=== PATIENT | female | born 1945 | race African-American/Black ===

== ENCOUNTER 2016-08-12 22:15 | Emergency (ER) | payer MEDICARE, BC ==
--- NOTE | 2016-08-12 23:43 | RAD ---
PORTABLE UPRIGHT FRONTAL CHEST RADIOGRAPH 08/12/16 COMPARISON: 08/07/10 HISTORY: Syncope. FINDINGS: Shallow inspiration noted. Mild increased density in the left base suggests volume loss or less like ly minimal infiltrate. There is no focal consolidation or alveolar edema. Mild prominence of the car diac silhouette persists. IMPRESSION: No focal consolidation or alveolar edema. Mild increased density in the left lung base noted. POS: [facility]
[2016-08-13] LABS: INR-International Normal Ratio 1.1; PTT 33.6 SEC (22.9-36.1)
[2016-08-13 00:04] LABS: #Basophils 0.1 thou/uL (0.0-0.2); #Lymphocytes 2.5 thou/uL (1.20-3.40); #Monocytes 0.8 thou/uL (0.11-0.59); #Neutrophils 5.4 thou/uL (1.40-6.50); %Basophils 1.3 % (0.0-1.0); %Eosinophils 0.5 % (0.0-10.0); %Monocytes 8.6 % (0.0-10.0); %Neutrophils 61.6 % (42.0-75.0); Hemoglobin 10.5 g/dL (12.0-16.0); Mean Corpuscular Hemoglobin 28.6 pg (27.0-31.0); Mean Corpuscular Volume 89.3 fl (81.0-99.0); Mean Platelet Volume 8.8 fL (7.4-10.4); Platelet Count 239 thou/uL (130-400); RBC Distribution Width 12.6 % (11.5-14.5); Red Blood Cell (RBC) Count 3.67 mill/uL (4.20-5.40); White Blood Cell (WBC) Count 8.8 thou/uL (4.8-10.8)
[2016-08-13 00:04] LABS: Bilirubin Negative (Negative); Blood, Urine Negative (Negative); Clarity Clear (Clear); Glucose, Urine (Dipstick) Negative (Negative); Leukocyte Negative (Negative); Nitrite Negative (Negative); Protein, Urine (Dipstick) Negative (Neg-Trace); Urobilinogen 0.2 mg/dL (0.2-1.0)
[2016-08-13 00:14] LABS: ALT (SGPT) 25 U/L (0-55); AST (SGOT) 44 U/L (5-34); Alkaline Phosphatase 47 U/L (40-150); Anion Gap 20 mmol/L (10-20); BUN (Urea Nitrogen) 12 mg/dL (9.8-20.1); Bilirubin, Total 0.4 mg/dL (0.2-1.2); CK (CPK) 1157 U/L (29-168); Calc. Creatinine Clearance 0 mL/min (70-130); Calcium 9.4 mg/dL (7.8-10.44); Carbon Dioxide 18 mmol/L (23-31); Chloride 103 mmol/L (98-107); Estimated GFR-MDRD 89; Globulin 3.1 g/dL (2.4-3.5); Glucose 108 mg/dL (80-115); Magnesium 2.2 mg/dL (1.6-2.6); Potassium 3.9 mmol/L (3.5-5.1); Protein, Total 7.1 g/dL (5.8-8.1); Sodium 137 mmol/L (136-145)
[2016-08-13 00:36] LABS: CKMB 7.1 ng/mL (0-6.6)
--- NOTE | 2016-08-13 01:27 | ERRECORD ---
[facility] EMERGENCY RECORD HPI WEAK-DIZZY (22:45 LLDO) CHIEF COMPLAINT: Denies weakness, Patient presents for evaluation of dizziness, Patient presents for evaluation of lightheadedness, Denies mental status changes, Patient presents for evaluation of pt got out of the hospital just over 24 hours ago. harepair of abdo hernias with mesh. been taking ultram, 100mg every 4 hours since. been resting and hydrating with mild ambulation exercising. earlier today began noting some lightheadedness and mild dizziness when she got up. says she has hx of htn but not feeling this way. says her htn got up to 200/100 and she took a catapres about 10 minutes before arriving here. pt says she's in no pain of note. no n/v/d or fever. HISTORIAN: History provided by patient, History provided by patient's spouse. LOCATION: Symptoms are generalized. QUALITY: Patient is alert and oriented to person, place and time, Whittier coma score is 15, Different compared with previous episodes, completely different. SEVERITY: Maximum severity of symptoms mild, Currently symptoms are mild. TIME COURSE: Patient unable to describe onset of symptoms, There has been no change in the patient's symptoms over time, are intermittent. ASSOCIATED WITH: No associated symptoms, Denies any other complaints. EXACERBATED BY: Patient's condition exacerbated by position, Patient's condition exacerbated by movement. RELIEVED BY: Patient's condition relieved by remaining still. ROS CONSTITUTIONAL: Historian reports fatigue. (22:56 LLDO) EYES: Negative eye review of systems, Historian denies eye pain, denies eye redness, denies eye discharge. (23:04 LLDO) ENT: Negative ears, nose, throat review of systems, Historian denies epistaxis, denies rhinorrhea, denies sinus pain, denies sore throat. (23:04 LLDO) CARDIOVASCULAR: Negative cardiovascular review of systems, Historian denies chest pain, no radiation, Historian denies diaphoresis, denies syncope. (23:04 LLDO) RESPIRATORY: Negative respiratory review of systems, Historian denies cough, denies shortness of breath, denies sputum. (23:04 LLDO) GI: Negative gastrointestinal review of systems, Historian denies abdominal pain, denies constipation, denies diarrhea, denies nausea, denies vomiting. (23:04 LLDO) GENITOURINARY FEMALE: Negative genitourinary review of systems, Historian denies dysuria, denies frequency, denies urgency. (23:04 LLDO) MUSCULOSKELETAL: Negative musculoskeletal review of systems, Historian denies arthralgias, denies back pain, denies injury, denies myalgias, denies neck pain. (23:04 LLDO) SKIN: Negative skin review of systems, Historian denies cellulitis, denies rash, denies skin changes, denies skin lesions. &a-1R&a+25V*p+0X*t6333H*c202B*c15G*c2P*p-0X&a-25V&a+1R Name: Lazara Alexander : 1945 F71 MedRec: [id number] AcctNum: [id number] Prepared: Sat Aug 13, 2016 01:36 by Interface Page 1 of 5 pMD [facility] EMERGENCY RECORD (23:04 LLDO) NEUROLOGIC: Historian denies confusion, reports dizziness, denies dysphasia, denies focal weakness, denies gait changes, denies headache, denies irritability, denies lethargy, denies mental status changes, denies paralysis, denies paresthesias, denies seizures, denies sensory changes, denies speech changes, denies tics, denies tremors. (22:56 LLDO) HEMO/LYMPHATIC: Normal hematologic/lymphatic system review, Historian denies abnormal blood clotting, denies gum bleeding, denies petechiae. (23:04 LLDO) ALLERGIC/IMMUNOLOGIC: Normal allergy/immunologic system review, Historian denies eczema, denies environmental allergies, denies food allergies. (23:04 LLDO) PSYCHIATRIC: Negative psychiatric review of systems, Historian denies alcohol abuse, denies anxiety, denies depression, denies drug abuse, denies hallucinations. (23:04 LLDO) NOTES: All systems reviewed, negative except as described above. (22:56 LLDO) PAST MEDICAL HISTORY MEDICAL HISTORY: Past medical history includes gastrointestinal disease, diverticulitis, Past medical history includes history of hypertension, which has been treated. (22:28 LWAL) FEMALE SURGICAL HISTORY: BREAST BIOPSY,, Surgical history of hernia repair, Surgical history of hysterectomy, Notes: PARTIAL. (22:28 LWAL) NOTES: Nursing records reviewed, Agree with nursing records, Medication list reviewed. (23:03 LLDO) KNOWN ALLERGIES Codeine (Unconfirmed) codeine sulfate Iodides Iodinated Contrast Media (Unconfirmed) Latex morphine Shellfish Allergy (Unconfirmed) CURRENT MEDICATIONS amLODIPine: TABLET : Strength - 5 mg : ORAL Patient Dose: Unknown. (22:38 LWAL) hydrALAZINE: TABLET : Strength - 25 mg : ORAL Patient Dose: Unknown. (22:38 LWAL) Aspirin Child: TABLET, CHEWABLE : Strength - 81 mg : ORAL Patient Dose: Unknown. (22:38 LWAL) Diovan: &a-1R&a+25V*p+0X*l3113T*c202B*c15G*c2P*p-0X&a-25V&a+1R Name: Lazara Alexander : 1945 F71 MedRec: [id number] AcctNum: [id number] Prepared: Humberto Aug 13, 2016 01:36 by Interface Page 2 of 5 pMD [facility] EMERGENCY RECORD TABLET : Strength - 320 mg : ORAL Patient Dose: Unknown. (22:39 LWAL) triamterene-hydrochlorothiazid: CAPSULE : Strength - 37.5 mg-25 mg : ORAL Patient Dose: Unknown. (22:39 LWAL) Dialyvite Vitamin D: CAPSULE : Strength - 5,000 unit : ORAL Patient Dose: Unknown. (22:40 LWAL) Crestor: TABLET : Strength - 20 mg : ORAL Patient Dose: Unknown. (22:40 LWAL) omeprazole: CAPSULE,DELAYED RELEASE (ENTERIC COATED) : Strength - 20 mg : ORAL Patient Dose: Unknown. (22:40 LWAL) methimazole: TABLET : Strength - 10 mg : ORAL Patient Dose: Unknown. (22:40 LWAL) oxybutynin chloride: TABLET : Strength - 5 mg : ORAL Patient Dose: Unknown. (22:41 LWAL) VITAL SIGNS VITAL SIGNS: BP: 197/76, Pulse: 103, Resp: 20, O2 sat: 97 on Room Air, Time: 08/12/2016 22:21. (22:21 LWAL) BP: 160/59, Pulse: 95, Resp: 18, Pain: 0, O2 sat: 98 on Room Air, Time: 08/12/2016 23:31. (23:31 LWAL) BP: 157/58, Pulse: 89, Resp: 16, Pain: 0, O2 sat: 98 on RA, Time: 08/13/2016 00:09. (Sat Aug 13, 2016 00:09 LWAL) PHYSICAL EXAM CONSTITUTIONAL: Vital signs reviewed, Patient afebrile, Pulse, tachycardic, 103, Blood pressure, BP ELEVATED...197/76, Respiratory rate normal, Patient appears non toxic, Patient appears pain free, Patient alert and oriented to person, place and time. (22:58 LLDO) HEAD: Head exam normal, Head exam included findings of head atraumatic, normocephalic. (23:04 LLDO) EYES: Eye exam normal, Eye exam included findings of eyelids normal to inspection, Pupils equally round and reactive to light, Extraocular muscles intact. (23:04 LLDO) ENT: ENT exam normal, Ear exam normal, Nose exam normal. (23:04 LLDO) NECK: Neck exam normal, Neck exam included findings of normal range of motion, Trachea midline, no meningeal signs, no tenderness. (23:04 LLDO) RESPIRATORY CHEST: Respiratory and chest exam normal, Respiratory exam included findings of, Chest exam included findings of chest movement symmetrical, Chest expansion equal. (23:04 LLDO) CARDIOVASCULAR: Cardiovascular assessment normal, Cardiovascular &a-1R&a+25V*p+0X*f9421Z*c202B*c15G*c2P*p-0X&a-25V&a+1R Name: Lazara Alexander : 1945 F71 MedRec: [id number] AcctNum: [id number] Prepared: Sat Aug 13, 2016 01:36 by Interface Page 3 of 5 pMD [facility] EMERGENCY RECORD exam included findings of heart rate regular rate and rhythm, Heart sounds normal. (23:04 LLDO) ABDOMEN FEMALE: Abdominal exam included findings of abdomen tender, pt wearing a binder around entire abdo, from her recent hernia surgery. abdo is diffusely tender from the surgerytender, Bowel sounds normal. (22:58 LLDO) BACK: Back exam normal, Back exam included findings of normal inspection, range of motion normal. (23:04 LLDO) UPPER EXTREMITY: Upper extremity exam normal, Upper extremity exam included findings of inspection normal, Range of motion normal. (23:04 LLDO) LOWER EXTREMITY: Lower extremity exam normal, Lower extremity exam included findings of inspection normal, Range of motion normal. (23:04 LLDO) NEURO: Luis coma scale 15, Neuro exam findings include patient oriented to person, place and time, Speech normal, Gait normal, Memory normal, Cranial nerves intact, Deep tendon reflexes normal, no focal motor deficits, no focal sensory deficits, no cerebellar deficits, no nystagmus. (22:58 LLDO) SKIN: Skin exam normal, Skin exam included findings of skin warm, dry, and normal in color, no rash. (23:04 LLDO) PSYCHIATRIC: Psychiatric exam included findings of patient oriented to person place and time, Normal affect, Judgment normal, Insight normal, Remote memory normal, Recent memory normal, Concentration normal, No suicidal ideations, No homicidal ideations. (22:58 LLDO) DOCTOR NOTES (Sat Aug 13, 2016 01:14 LLDO) TEXT: while here pt complained about inability to urinate normally. says the problem has been going on since her surgery. post-void bladder scan showed 650 ml residual urine. jasmine put in with complete relief. told pt this might be an effect of the anesthetic and would wear off. will leave jasmine in until pt is seen by surgeon on Monday (Jul). labs generally neg. ck and ckmb elevated, but trop well down in normal range. suspect enzyme elevation d.t. surgery. pt now feeling back to normal. walking about w/o dizziness or weakness and anxious to go home. PROBLEM LIST No recorded problems DIAGNOSIS (Sat Aug 13, 2016 01:05 LLDO) FINAL: PRIMARY: Medication reaction, ADDITIONAL: post-op pain, urinary retention. PRESCRIPTION (Sat Aug 13, 2016 01:06 LLDO) Fioricet: TABLET : 50 mg-325 mg-40 mg : ORAL : Quantity: 2 Unit: tab(s) Route: ORAL Schedule: every 4 hours prn Dispense: 40 Unit: tab(s) &a-1R&a+25V*p+0X*y9655O*c202B*c15G*c2P*p-0X&a-25V&a+1R Name: Lazara Alexander : 1945 F71 MedRec: [id number] AcctNum: [id number] Prepared: Humberto Aug 13, 2016 01:36 by Interface Page 4 of 5 pMD [facility] EMERGENCY RECORD May substitute. Refills: 1 . DISPOSITION PATIENT: Disposition Type: Discharge, Disposition: *Discharge Home. (Sat Aug 13, 2016 01:05 LLDO) Disposition Transport: Car, Condition: Good, Patient left the department. ([facility] Aug 13, 2016 01:32 LWAL) Lepe: LLDO=MD Enzo, Robert LWAL=BONNIE Andrade, Deepali &a-1R&a+25V*p+0X*f5319M*c202B*c15G*c2P*p-0X&a-25V&a+1R Name: Lazara Alexander : 1945 F71 MedRec: [id number] AcctNum: [id number] Prepared: Humberto Aug 13, 2016 01:36 by Interface Page 5 of 5 pMD [facility]TDD
--- NOTE | 2016-08-13 01:43 | PICIS ---
[facility] EMERGENCY RECORD TRIAGE (MonAug 12, 2016 22:21 LWAL) TRIAGE NOTES: DIZZINESS, HIGH BLOOD PRESSURE. (MonAug 12, 2016 22:21 LWAL) PATIENT: NAME: Lazara Alexander, AGE: 71, GENDER: female, : Mon1945, TIME OF GREET: MonAug 12, 2016 22:16, PREFERRED LANGUAGE: Swedish, ETHNICITY: Not or , ECODE BILLING MAP: [facility], SSN: [id number], Zip Code: [address], KG WEIGHT: 79.83, PHONE: , , , PERSON ID: [id number], PCP: MD Rhoades Grover. (MonAug 12, 2016 22:21 LWAL) COMPLAINT: DIZZINESS AND ELEVATED BLOOD PRESSURE. (MonAug 12, 2016 22:21 LWAL) ADMISSION: URGENCY: 4 Non Urgent, ADMISSION SOURCE: Home, TRANSPORT: CAR, BED: ED -01. (MonAug 12, 2016 22:21 LWAL) ASSESSMENT: Assessment: DIZZINESS, HIGH BLOOD PRESSURE, Symptoms began THIS MORNING. (22:28 LWAL) SIRS SCORING: Heart Rate 55-109 (0), Temp range 96.8-101.1 (0), respiratory rate 12-24 (0), Mental Status altered: no (0), Total SIRS Score 0, Infection or Suspected Infection: No. (22:28 LWAL) TRIAGE SCREENING: Patient denies suicidal ideation, Patient denies presence of domestic violence. (22:28 LWAL) TREATMENTS IN PROGRESS: Medications Given, PT TOOK CLONIDINE AT HOME BEFORE LEAVING. (22:28 LWAL) PROVIDERS: TRIAGE NURSE: Deepali Andrade RN. (MonAug 12, 2016 22:21 LWAL) VITAL SIGNS: BP 197/76, Pulse 103, Resp 20, O2 Sat 97, on Room Air, Time 08/12/2016 22:21. (22:21 LWAL) PREVIOUS VISIT ALLERGIES: codeine sulfate, Iodides. (MonAug 12, 2016 22:21 LWAL) codeine sulfate, Iodides. (22:28 LWAL) KNOWN ALLERGIES Codeine (Unconfirmed) codeine sulfate Iodides Iodinated Contrast Media (Unconfirmed) Latex morphine Shellfish Allergy (Unconfirmed) CURRENT MEDICATIONS amLODIPine: TABLET : Strength - 5 mg : ORAL Patient Dose: Unknown. (22:38 LWAL) hydrALAZINE: TABLET : Strength - 25 mg : ORAL Patient Dose: Unknown. (22:38 LWAL) Aspirin Child: TABLET, CHEWABLE : Strength - 81 mg : ORAL Patient Dose: Unknown. (22:38 LWAL) &a-1R&a+25V*p+0X*c6624T*c202B*c15G*c2P*p-0X&a-25V&a+1R Name: Lazara Alexander : 1945 F71 MedRec: [id number] AcctNum: [id number] Prepared: Sat Aug 13, 2016 01:42 by Interface Page 1 of 13 pMD [facility] EMERGENCY RECORD Diovan: TABLET : Strength - 320 mg : ORAL Patient Dose: Unknown. (22:39 LWAL) triamterene-hydrochlorothiazid: CAPSULE : Strength - 37.5 mg-25 mg : ORAL Patient Dose: Unknown. (22:39 LWAL) Dialyvite Vitamin D: CAPSULE : Strength - 5,000 unit : ORAL Patient Dose: Unknown. (22:40 LWAL) Crestor: TABLET : Strength - 20 mg : ORAL Patient Dose: Unknown. (22:40 LWAL) omeprazole: CAPSULE,DELAYED RELEASE (ENTERIC COATED) : Strength - 20 mg : ORAL Patient Dose: Unknown. (22:40 LWAL) methimazole: TABLET : Strength - 10 mg : ORAL Patient Dose: Unknown. (22:40 LWAL) oxybutynin chloride: TABLET : Strength - 5 mg : ORAL Patient Dose: Unknown. (22:41 LWAL) VITAL SIGNS VITAL SIGNS: BP: 197/76, Pulse: 103, Resp: 20, O2 sat: 97 on Room Air, Time: 08/12/2016 22:21. (22:21 LWAL) BP: 160/59, Pulse: 95, Resp: 18, Pain: 0, O2 sat: 98 on Room Air, Time: 08/12/2016 23:31. (23:31 LWAL) BP: 157/58, Pulse: 89, Resp: 16, Pain: 0, O2 sat: 98 on RA, Time: 08/13/2016 00:09. (Sat Aug 13, 2016 00:09 LWAL) BP: 166/65, Pulse: 85, Resp: 20, Temp: 97.8, Pain: 0, O2 sat: 97 on RA, Time: 08/13/2016 01:28. (Sat Aug 13, 2016 01:28 LWAL) NURSING ASSESSMENT: FALL RISK (22:43 LWAL) FALL RISK: Use of level of consciousness altering agents with mentation or cognitive changes (3), Change in blood pressure (1), Impaired mobility (3), Total score 7. NURSING ASSESSMENT: FOCUSED (22:32 LWAL) CONSTITUTIONAL: Patient arrives ambulatory, Gait steady, History obtained from patient, Patient appears, uncomfortable, Patient cooperative, Patient alert, Oriented to person, place and time, Skin warm, Skin dry, Skin normal in color, Mucous membranes pink, Mucous membranes moist, Patient is well-groomed, Patient complains of DIZZIINESS, HIGH BLOOD PRESSURE, PT RECENT DISCHARGE FROM [facility] WITH ABD HERNIA REPAIR. PT STARTED HAVING DIZZINESS THIS MORNING AND HIGH BLOOD PRESSURE THIS EVENING. PT TOOK A CLONIDINE TABLET AT HOME BEFORE LEAVING. PT WEARING AN ABD BINDER FOR THE POST OP PRECAUTIONS. NEURO: Focused neuro assessment findings include patient alert, &a-1R&a+25V*p+0X*v6086L*c202B*c15G*c2P*p-0X&a-25V&a+1R Name: Lazara Alexander : 1945 F71 MedRec: [id number] AcctNum: [id number] Prepared: [facility] Aug 13, 2016 01:42 by Interface Page 2 of 13 pMD [facility] EMERGENCY RECORD cooperative, No facial droop noted, Speech coherent, No loss of consciousness. GCS: Eye opening: (4) - Spontaneous, Verbal: (5) - Oriented/conversive, Motor: (6) - Obeys commands/Spontaneous, GCS Total: 15. RESPIRATORY: Focused respiratory assessment findings include breath sounds clear, to bilateral upper lobes, to the right middle lobe, to bilateral lower lobes. ABDOMEN: Focused abdominal assessment findings include abdomen soft, non tender, Notes: PT HAS NOT HAD A BOWEL MOVEMENT SINCE THE SURGERY BUT PT STATED SHE IS PASSING GAS WELL. GENITOURINARY FEMALE: Notes: PT STATES THAT SHE IS FEELING LIKE AHE NEEDS TO URINATE BUT SHE WILL GO SOMETIMES AND SOMETIMES NOT. MUSCULOSKELETAL: Focused musculoskeletal assessment findings include normal range of motion, brachial pulse +4, radial pulse +4, pedal pulse +4, posterior tibia pulse +4. LACERATION: Focused laceration assessment not applicable. NOTES: Patient tolerated procedure well. SAFETY: Side rails up, Cart/Stretcher in lowest position, Family at bedside, Call light within reach, Hospital ID band on. NURSING ASSESSMENT: SKIN (22:42 LWAL) SKIN: Skin assessment findings include skin warm, Skin dry, Skin normal in color, Notes: 3 INCISION SITES ON ABD. NO S/S OF INFECTION NOTED. NURSING PROCEDURE: BEDSIDE RADIOLOGY (22:41 [facility]) PATIENT IDENTIFIER: Patient actively involved in identification process, Patient's identity verified by patient stating name, Patient's identity verified by patient stating date. BEDSIDE RADIOLOGY: Portable chest x-ray performed. NOTES: Patient tolerated procedure well. SAFETY: Side rails up, Cart/Stretcher in lowest position, Family at bedside, Call light within reach, Hospital ID band on. NURSING PROCEDURE: DISCHARGE NOTE (Sat Aug 13, 2016 01:28 LWAL) DISCHARGE: Patient discharged to home, in a wheelchair, family driving, accompanied by //partner, Summary of Care printed/ provided, Patient requested and was provided an electronic copy of Discharge Instructions, Transition record given to patient, Discharge instructions given to patient, Simple or moderate discharge teaching performed, by ALPHONSE NICOLE, Prescriptions given and instructions on side effects given, Name of prescription(s) given: FRANCES, Maria T person(s) verbalized understanding of discharge instructions and follow-up care, Patient treated and evaluated by physician, Notes: SPOUSE TO DRIVE PT HOME. BELONGINGS: Belongings remain with patient, Valuables remain with patient. NOTES: Patient tolerated procedure well. &a-1R&a+25V*p+0X*x7836Z*c202B*c15G*c2P*p-0X&a-25V&a+1R Name: Lazara Alexander : 1945 F71 MedRec: [id number] AcctNum: [id number] Prepared: Sat Aug 13, 2016 01:42 by Interface Page 3 of 13 D [facility] EMERGENCY RECORD SAFETY: Side rails up, Cart/Stretcher in lowest position, Family at bedside, Hospital ID band on. VITAL SIGNS: BP: 166, / 65, Pulse: 85, Resp: 20, Temp: 97.8, Pain: 0, O2 sat: 97, on: RA. NURSING PROCEDURE: EKG CHART (22:25 LWAL) PATIENT IDENTIFIER: Patient actively involved in identification process, Patient's identity verified by patient stating name, Patient's identity verified by hospital ID bracelet. EKG: EKG indicated for DIZZINESS, 12 lead EKG performed on the left chest, done by HANNAH NICOLE, first EKG. FOLLOW-UP: After procedure, EKG for interpretation given to Dr. GIRALDO. NOTES: Patient tolerated procedure well. SAFETY: Side rails up, Cart/Stretcher in lowest position, Family at bedside, Hospital ID band on. NURSING PROCEDURE: IV PATIENT IDENITIFIER: Patient actively involved in identification process, Patient's identity verified by patient stating name, Patient's identity verified by hospital ID bracelet. (23:10 LWAL) IV SITE 1: IV therapy indicated for hydration, IV therapy indicated for medication administration, IV established, to the right hand, using a 20 gauge catheter, in one attempt, IV site prepped with CHLORAPREP, Saline lock established, Flushed with normal saline (mls): 10 ML, Labs drawn at time of placement, labeled in the presence of the patient and sent to lab. (23:10 LWAL) FOLLOW-UP SITE 1: IV discontinued, due to patient being discharged, catheter intact, Notes: REMOVED IV WITH CATH INTACT. COVERED SITE WITH 2X2 AND BANDAID. PT TO TOLERATE WELL. (Sat Aug 13, 2016 01:28 LWAL) NOTES: Patient tolerated procedure well. (23:10 LWAL) SAFETY: Side rails up, Cart/Stretcher in lowest position, Family at bedside, Hospital ID band on. (23:10 LWAL) NURSING PROCEDURE: NURSE NOTES NURSES NOTES: Notes: PT FEELING BETTER, DIZZINESS IS GONE. NO DISTRESS NOTED. (Sat Aug 13, 2016 00:09 LWAL) Notes: TO SPEAK WITH PT AND SPOUSE ABOUT LABS AND XRAY RESULTS. PT TO GO HOME WITH QUIROZ IN PLACE. (Sat Aug 13, 2016 01:00 LWAL) VITAL SIGNS: BP: 157, / 58, Pulse: 89, Resp: 16, Pain: 0, O2 sat: 98, on: RA. (Sat Aug 13, 2016 00:09 LWAL) NURSING PROCEDURE: URINE COLLECTION PATIENT IDENTIFIER: Patient actively involved in identification process, Patient's identity verified by patient stating name, Patient's identity verified by hospital ID bracelet. (23:20 LWAL) URINE COLLECTION FEMALE: Urine collection indicated for patient unable to void, Simple quiroz inserted, using a 16 fr pre-connected &a-1R&a+25V*p+0X*w0516M*c202B*c15G*c2P*p-0X&a-25V&a+1R Name: Lazara Alexander : 1945 F71 MedRec: [id number] AcctNum: [id number] Prepared: Sat Aug 13, 2016 01:42 by Interface Page 4 of 13 pMD [facility] EMERGENCY RECORD catheter, in one attempt, output amount (mL) 650 ML, urine yellow in color, and clear, Quiroz has been anchored to leg and labeled with date and time, Specimen labeled in the presence of the patient and sent to lab, Specimen obtained for culture labeled in the presence of the patient and sent to lab, BLADDER SCAN DONE BEFORE CATHETER TO CONFIRM URINE RESIDUAL- GREATER THAN 450ML NOTED ON SCAN, Bladder scan performed, Urine amount pre-void (mL) GREATER THAN 450 ML, Urine amount post-void (mL) 650 ML IN QUIROZ BAG. (23:20 LWAL) FOLLOW UP: Changed Leg Bag, Leg bag teaching given. (Sat Aug 13, 2016 01:25 LWAL) NOTES: Patient tolerated procedure well. (23:20 LWAL) SAFETY: Side rails up, Cart/Stretcher in lowest position, Family at bedside, Call light within reach, Hospital ID band on. (23:20 LWAL) ORDER DETAILS Order Name: B type Natriuretic Peptide, Status: Active, Time: 22:38 08/12/2016, User: ESTEPHANIE, - Ordered for: MD Giraldo Lloyd, - Entered by: MD Giraldo Lloyd - [facility] Aug 12, 2016 22:38, - Quantity: 1, Order Name: CERTIFIED [employer]PORATE TRAVEL EXECUTIVE ED, Status: Done, Time: 22:40 08/12/2016, User: SHIKHA, - Ordered for: MD Giraldo Lloyd, - Entered by: MD Giraldo Lloyd - MonAug 12, 2016 22:38, - Quantity: 1, Order Name: Cardiac Profile w/CKMB & Troponin - I, Status: Active, Time: 22:38 08/12/2016, User: ESTEPHANIE, - Ordered for: MD Giraldo Lloyd, - Entered by: MD Giraldo Lloyd - MonAug 12, 2016 22:38, - Quantity: 1, Order Name: CBC with Differential, Status: Active, Time: 22:38 08/12/2016, User: LLDO, - Ordered for: MD Giraldo Lloyd, - Entered by: MD Giraldo Lloyd - MonAug 12, 2016 22:38, - Quantity: 1, Order Name: CK (CPK), Status: Active, Time: 22:38 08/12/2016, User: ESTEPHANIE, - Ordered for: MD Giraldo Lloyd, - Entered by: MD Giraldo Lloyd - MonAug 12, 2016 22:38, - Quantity: 1, Order Name: Comprehensive Metabolic Panel, Status: Active, Time: 22:38 08/12/2016, User: ESTEPHANIE, - Ordered for: MD Giraldo Lloyd, - Entered by: MD Giraldo Lloyd - MonAug 12, 2016 22:38, - Quantity: 1, Order Name: Culture, Urine, Status: Active, Time: 22:39 08/12/2016, User: ESTEPHANIE, - Ordered for: MD Giraldo Lloyd, &a-1R&a+25V*p+0X*w6977V*c202B*c15G*c2P*p-0X&a-25V&a+1R Name: Lazara Alexander : 1945 F71 MedRec: [id number] AcctNum: [id number] Prepared: Sat Aug 13, 2016 01:42 by Interface Page 5 of 13 D [facility] EMERGENCY RECORD - Entered by: MD Giraldo Lloyd - MonAug 12, 2016 22:39, - Quantity: 1, Order Name: EKG 12 Lead in Emergency Room, Status: Active, Time: 22:38 08/12/2016, User: LLDO, - Ordered for: MD Giraldo Lloyd, - Entered by: MD Giraldo Lloyd - [facility] Aug 12, 2016 22:38, - Quantity: 1, Order Name: ERRT Oxygen Usage ER, Status: Active, Time: 22:38 08/12/2016, User: LLDO, - Ordered for: MD Giraldo Lloyd, - Entered by: MD Giraldo Lloyd - [facility] Aug 12, 2016 22:38, - Quantity: 1, Order Name: ERRT Pulse Oximeter ER, Status: Active, Time: 22:38 08/12/2016, User: LLDO, - Ordered for: MD Giraldo Lloyd, - Entered by: MD Giraldo Lloyd - [facility] Aug 12, 2016 22:38, - Quantity: 1, Order Name: QUIROZ CATHETER ED, Status: Done, Time: 01:11 08/13/2016, User: LWAL, - Ordered for: MD Giraldo Lloyd, - Entered by: MD Giraldo Lloyd - [facility] Aug 13, 2016 01:11, - Quantity: 1, Order Name: Magnesium, Status: Active, Time: 22:38 08/12/2016, User: LLDO, - Ordered for: MD Giraldo Lloyd, - Entered by: MD Giraldo Lloyd - [facility] Aug 12, 2016 22:38, - Quantity: 1, Order Name: Miscellaneous Nurse Order(s), Status: Active, Time: 01:12 08/13/2016, User: LLDO, - Ordered for: MD Giraldo Lloyd, - Entered by: MD Giraldo Lloyd - [facility] Aug 13, 2016 01:12, - Quantity: 1, Order Name: Protime with INR, Status: Active, Time: 22:38 08/12/2016, User: LLDO, - Ordered for: MD Giraldo Lloyd, - Entered by: MD Giraldo Lloyd - [facility] Aug 12, 2016 22:38, - Quantity: 1, Order Name: PTT, Status: Active, Time: 22:38 08/12/2016, User: LLDO, - Ordered for: MD Giraldo Lloyd, - Entered by: MD Giraldo Lloyd - [facility] Aug 12, 2016 22:38, - Quantity: 1, Order Name: SALINE LOCK, Status: Done, Time: 23:30 08/12/2016, User: LWAL, - Ordered for: MD Giraldo Lloyd, - Entered by: MD Giraldo Lloyd - [facility] Aug 12, 2016 22:38, - Quantity: 1, Order Name: Urinalysis w/ Rflx Microscopic, Status: Active, Time: 22:39 08/12/2016, User: ESTEPHANIE, - Ordered for: MD Giraldo Lloyd, - Entered by: MD Giraldo Lloyd - [facility] Aug 12, 2016 22:39, &a-1R&a+25V*p+0X*l9626M*c202B*c15G*c2P*p-0X&a-25V&a+1R Name: Lazara Alexander : 1945 F71 MedRec: [id number] AcctNum: [id number] Prepared: Sat Aug 13, 2016 01:42 by Interface Page 6 of 13 pMD [facility] EMERGENCY RECORD - Quantity: 1, Order Name: US Bladder, Status: Active, Time: 01:14 08/13/2016, User: LLDO, - Ordered for: MD Giraldo Lloyd, - Entered by: MD Giraldo Lloyd - [facility] Aug 13, 2016 01:14, - Quantity: 1, Order Name: XR Chest 1 View Portable, Status: Active, Time: 22:37 08/12/2016, User: LLDO, - Ordered for: MD Giraldo Lloyd, - Entered by: MD Giraldo Lloyd - [facility] Aug 12, 2016 22:37, - Quantity: 1. HPI WEAK-DIZZY (22:45 LLDO) CHIEF COMPLAINT: Denies weakness, Patient presents for evaluation of dizziness, Patient presents for evaluation of lightheadedness, Denies mental status changes, Patient presents for evaluation of pt got out of the hospital just over 24 hours ago. harepair of abdo hernias with mesh. been taking ultram, 100mg every 4 hours since. been resting and hydrating with mild ambulation exercising. earlier today began noting some lightheadedness and mild dizziness when she got up. says she has hx of htn but not feeling this way. says her htn got up to 200/100 and she took a catapres about 10 minutes before arriving here. pt says she's in no pain of note. no n/v/d or fever. HISTORIAN: History provided by patient, History provided by patient's spouse. LOCATION: Symptoms are generalized. QUALITY: Patient is alert and oriented to person, place and time, [place] coma score is 15, Different compared with previous episodes, completely different. SEVERITY: Maximum severity of symptoms mild, Currently symptoms are mild. TIME COURSE: Patient unable to describe onset of symptoms, There has been no change in the patient's symptoms over time, are intermittent. ASSOCIATED WITH: No associated symptoms, Denies any other complaints. EXACERBATED BY: Patient's condition exacerbated by position, Patient's condition exacerbated by movement. RELIEVED BY: Patient's condition relieved by remaining still. ROS CONSTITUTIONAL: Historian reports fatigue. (22:56 LLDO) EYES: Negative eye review of systems, Historian denies eye pain, denies eye redness, denies eye discharge. (23:04 LLDO) ENT: Negative ears, nose, throat review of systems, Historian denies epistaxis, denies rhinorrhea, denies sinus pain, denies sore throat. (23:04 LLDO) CARDIOVASCULAR: Negative cardiovascular review of systems, Historian denies chest pain, no radiation, Historian denies diaphoresis, denies syncope. (23:04 LLDO) RESPIRATORY: Negative respiratory review of systems, Historian &a-1R&a+25V*p+0X*y1623P*c202B*c15G*c2P*p-0X&a-25V&a+1R Name: Lazara Alexander : 1945 F71 MedRec: [id number] AcctNum: [id number] Prepared: Sat Aug 13, 2016 01:42 by Interface Page 7 of 13 pMD [facility] EMERGENCY RECORD denies cough, denies shortness of breath, denies sputum. (23:04 LLDO) GI: Negative gastrointestinal review of systems, Historian denies abdominal pain, denies constipation, denies diarrhea, denies nausea, denies vomiting. (23:04 LLDO) GENITOURINARY FEMALE: Negative genitourinary review of systems, Historian denies dysuria, denies frequency, denies urgency. (23:04 LLDO) MUSCULOSKELETAL: Negative musculoskeletal review of systems, Historian denies arthralgias, denies back pain, denies injury, denies myalgias, denies neck pain. (23:04 LLDO) SKIN: Negative skin review of systems, Historian denies cellulitis, denies rash, denies skin changes, denies skin lesions. (23:04 LLDO) NEUROLOGIC: Historian denies confusion, reports dizziness, denies dysphasia, denies focal weakness, denies gait changes, denies headache, denies irritability, denies lethargy, denies mental status changes, denies paralysis, denies paresthesias, denies seizures, denies sensory changes, denies speech changes, denies tics, denies tremors. (22:56 LLDO) HEMO/LYMPHATIC: Normal hematologic/lymphatic system review, Historian denies abnormal blood clotting, denies gum bleeding, denies petechiae. (23:04 LLDO) ALLERGIC/IMMUNOLOGIC: Normal allergy/immunologic system review, Historian denies eczema, denies environmental allergies, denies food allergies. (23:04 LLDO) PSYCHIATRIC: Negative psychiatric review of systems, Historian denies alcohol abuse, denies anxiety, denies depression, denies drug abuse, denies hallucinations. (23:04 LLDO) NOTES: All systems reviewed, negative except as described above. (22:56 LLDO) PAST MEDICAL HISTORY MEDICAL HISTORY: Past medical history includes gastrointestinal disease, diverticulitis, Past medical history includes history of hypertension, which has been treated. (22:28 LWAL) FEMALE SURGICAL HISTORY: BREAST BIOPSY,, Surgical history of hernia repair, Surgical history of hysterectomy, Notes: PARTIAL. (22:28 LWAL) NOTES: Nursing records reviewed, Agree with nursing records, Medication list reviewed. (23:03 LLDO) PHYSICAL EXAM CONSTITUTIONAL: Vital signs reviewed, Patient afebrile, Pulse, tachycardic, 103, Blood pressure, BP ELEVATED...197/76, Respiratory rate normal, Patient appears non toxic, Patient appears pain free, Patient alert and oriented to person, place and time. (22:58 LLDO) HEAD: Head exam normal, Head exam included findings of head atraumatic, normocephalic. (23:04 LLDO) &a-1R&a+25V*p+0X*c8839A*c202B*c15G*c2P*p-0X&a-25V&a+1R Name: Lazara Alexander : 1945 F71 MedRec: [id number] AcctNum: [id number] Prepared: Humberto Aug 13, 2016 01:42 by Interface Page 8 of 13 pMD [facility] EMERGENCY RECORD EYES: Eye exam normal, Eye exam included findings of eyelids normal to inspection, Pupils equally round and reactive to light, Extraocular muscles intact. (23:04 LLDO) ENT: ENT exam normal, Ear exam normal, Nose exam normal. (23:04 LLDO) NECK: Neck exam normal, Neck exam included findings of normal range of motion, Trachea midline, no meningeal signs, no tenderness. (23:04 LLDO) RESPIRATORY CHEST: Respiratory and chest exam normal, Respiratory exam included findings of, Chest exam included findings of chest movement symmetrical, Chest expansion equal. (23:04 LLDO) CARDIOVASCULAR: Cardiovascular assessment normal, Cardiovascular exam included findings of heart rate regular rate and rhythm, Heart sounds normal. (23:04 LLDO) ABDOMEN FEMALE: Abdominal exam included findings of abdomen tender, pt wearing a binder around entire abdo, from her recent hernia surgery. abdo is diffusely tender from the surgerytender, Bowel sounds normal. (22:58 LLDO) BACK: Back exam normal, Back exam included findings of normal inspection, range of motion normal. (23:04 LLDO) UPPER EXTREMITY: Upper extremity exam normal, Upper extremity exam included findings of inspection normal, Range of motion normal. (23:04 LLDO) LOWER EXTREMITY: Lower extremity exam normal, Lower extremity exam included findings of inspection normal, Range of motion normal. (23:04 LLDO) NEURO: Luis coma scale 15, Neuro exam findings include patient oriented to person, place and time, Speech normal, Gait normal, Memory normal, Cranial nerves intact, Deep tendon reflexes normal, no focal motor deficits, no focal sensory deficits, no cerebellar deficits, no nystagmus. (22:58 LLDO) SKIN: Skin exam normal, Skin exam included findings of skin warm, dry, and normal in color, no rash. (23:04 LLDO) PSYCHIATRIC: Psychiatric exam included findings of patient oriented to person place and time, Normal affect, Judgment normal, Insight normal, Remote memory normal, Recent memory normal, Concentration normal, No suicidal ideations, No homicidal ideations. (22:58 LLDO) EVENTS TRANSFER: Triage to Emergency Main ED -01. (MonAug 12, 2016 22:21 LWAL) Removed from Emergency Main ED -01. ([facility] Aug 13, 2016 01:32 LWAL) DOCTOR NOTES ([facility] Aug 13, 2016 01:14 LLDO) TEXT: while here pt complained about inability to urinate normally. says the problem has been going on since her surgery. post-void bladder scan showed 650 ml residual urine. quiroz put in with complete relief. told pt this might be an effect of the &a-1R&a+25V*p+0X*m4333X*c202B*c15G*c2P*p-0X&a-25V&a+1R Name: Lazara Alexander : 1945 F71 MedRec: [id number] AcctNum: [id number] Prepared: [facility] Aug 13, 2016 01:42 by Interface Page 9 of 13 pMD [facility] EMERGENCY RECORD anesthetic and would wear off. will leave quiroz in until pt is seen by surgeon on Monday (Jul). labs generally neg. ck and ckmb elevated, but trop well down in normal range. suspect enzyme elevation d.t. surgery. pt now feeling back to normal. walking about w/o dizziness or weakness and anxious to go home. PROBLEM LIST No recorded problems DIAGNOSIS ([facility] Aug 13, 2016 01:05 LLDO) FINAL: PRIMARY: Medication reaction, ADDITIONAL: post-op pain, urinary retention. DISPOSITION PATIENT: Disposition Type: Discharge, Disposition: *Discharge Home. ([facility] Aug 13, 2016 01:05 LLDO) Disposition Transport: Car, Condition: Good, Patient left the department. ([facility] Aug 13, 2016 01:32 LWAL) INSTRUCTION ([facility] Aug 13, 2016 01:09 LLDO) DISCHARGE: MEDICATION REACTION OTHER, URINARY RETENTION, FEMALE. FOLLOWUP: MD [place], Earl, [facility], [address] [place] [address], , Follow up with Primary Care Physician as scheduled. SPECIAL: See your surgeon on Monday, as scheduled. Follow-up with your PCP. PRESCRIPTION (MonAug 13, 2016 01:06 LLDO) Fioricet: TABLET : 50 mg-325 mg-40 mg : ORAL : Quantity: 2 Unit: tab(s) Route: ORAL Schedule: every 4 hours prn Dispense: 40 Unit: tab(s) May substitute. Refills: 1 . IMAGING (23:39 EROG) *EKG: Image captured from scanner. ADMIN DIGITAL SIGNATURE: BONNIE Beaver, [place]. (23:39 EROG) MD Enzo, Robert. (MonAug 13, 2016 01:23 LLDO) RESULTS LABORATORY: Urinalysis w/ Rflx Microscopic Collection DT: MonAug 12, 2016 23:49, Color Yellow , Range (Yellow), Clarity Clear , Range (Clear), Specific [place], Urine 1.020 , Range (1.005-1.030), pH, Urine 6.0 , Range (5.0-9.0), Leukocyte Negative , Range (Negative), Nitrite Negative , Range (Negative), &a-1R&a+25V*p+0X*m5969H*c202B*c15G*c2P*p-0X&a-25V&a+1R Name: Lazara Alexander : 1945 F71 MedRec: [id number] AcctNum: [id number] Prepared: MonAug 13, 2016 01:42 by Interface Page 10 of 13 pMD [facility] EMERGENCY RECORD Protein, Urine (Dipstick) Negative mg/dL, Range (Neg-Trace), Glucose, Urine (Dipstick) Negative mg/dL, Range (Negative), *Ketone, Urine Trace - H mg/dL, Range (Negative), Urobilinogen 0.2 mg/dL, Range (0.2-1.0), Bilirubin Negative , Range (Negative), Blood, Urine Negative , Range (Negative). (MonAug 13, 2016 00:09 LWAL) PTT Collection DT: MonAug 13, 2016 00:08, See comment below , Anticoagulant? NONE Medical Necessity SUSPECT COAGULOPATHY , PTT 33.6 SEC, Range (22.9-36.1). (MonAug 13, 2016 00:09 LWAL) Protime with INR Collection DT: Sat Aug 13, 2016 00:08, See comment below , Anticoagulant? NONE Medical Necessity SUSPECT COAGULOPATHY , Prothrombin Time 14.0 SEC, Range (12.0-14.7), INR-International Normal Ratio 1.1 , ATTENTION: READ CAREFULLY , The, recommended therapeutic ranges for oral anticoagulant treatments are: , , Low Intensity: 1.5 - 2.0 Moderate Intensity: 2.0, - 3.0 High Intensity (1): 2.5 - 3.5 High, Intensity (2): 3.0 - 4.0 CRITICAL: >, 4.0 . ([facility] Aug 13, 2016 00:09 LWAL) CBC with Differential Collection DT: MonAug 12, 2016 23:49, White Blood Cell (WBC) Count 8.8 thou/uL, Range (4.8-10.8), *Red Blood Cell (RBC) Count 3.67 - L mill/uL, Range (4.20-5.40), *Hemoglobin 10.5 - L g/dL, Range (12.0-16.0), *Hematocrit 32.8 - L %, Range (36.0-47.0), Mean Corpuscular Volume 89.3 fl, Range (81.0-99.0), Mean Corpuscular Hemoglobin 28.6 pg, Range (27.0-31.0), Mean Corpuscular HGB CONC 32.0 g/dL, Range (32.0-36.0), RBC Distribution Width 12.6 %, Range (11.5-14.5), Platelet Count 239 thou/uL, Range (130-400), Mean Platelet Volume 8.8 fL, Range (7.4-10.4), %Neutrophils 61.6 %, Range (42.0-75.0), %Lymphocytes 28.0 %, Range (21.0-51.0), %Monocytes 8.6 %, Range (0.0-10.0), %Eosinophils 0.5 %, Range (0.0-10.0), *%Basophils 1.3 - H %, Range (0.0-1.0), #Neutrophils 5.4 thou/uL, Range (1.40-6.50), #Lymphocytes 2.5 thou/uL, Range (1.20-3.40), &a-1R&a+25V*p+0X*o6571L*c202B*c15G*c2P*p-0X&a-25V&a+1R Name: Lazara Alexander : 1945 F71 MedRec: [id number] AcctNum: [id number] Prepared: MonAug 13, 2016 01:42 by Interface Page 11 of 13 pMD [facility] EMERGENCY RECORD *#Monocytes 0.8 - H thou/uL, Range (0.11-0.59), #Eosinphils 0.0 thou/uL, Range (0.0-0.7), #Basophils 0.1 thou/uL, Range (0.0-0.2). ([facility] Aug 13, 2016 00:09 LWAL) B type Natriuretic Peptide Collection DT: MonAug 12, 2016 23:49, B type Natriuretic Peptide 49.0 pg/mL, Range (0-100). ([facility] Aug 13, 2016 00:27 LWAL) Magnesium Collection DT: MonAug 12, 2016 23:49, Magnesium 2.2 mg/dL, Range (1.6-2.6), NOTE: Higher values can be expected in females during menses . ([facility] Aug 13, 2016 00:27 LWAL) CK (CPK) Collection DT: MonAug 12, 2016 23:49, *CK (CPK) 1157 - H U/L, Range (29-168). ([facility] Aug 13, 2016 00:27 LWAL) Comprehensive Metabolic Panel Collection DT: MonAug 12, 2016 23:49, Sodium 137 mmol/L, Range (136-145), Potassium 3.9 mmol/L, Range (3.5-5.1), Chloride 103 mmol/L, Range (98-107), *Carbon Dioxide 18 - L mmol/L, Range (23-31), Anion Gap 20 mmol/L, Range (10-20), BUN (Urea Nitrogen) 12 mg/dL, Range (9.8-20.1), Creatinine 0.78 mg/dL, Range (0.6-1.1), Estimated GFR-MDRD 89 , Reference Range for Estimated GFR: Greater than 90, mL/min/1.73 m2 NOTE: The MDRD equation has not been validated for use, with the elderly (over 70 years of age), women, patients with, serious comorbid condition or persons with extremes of body size, muscle, mass, or nutritional status. , Glucose 108 mg/dL, Range (80-115), Calcium 9.4 mg/dL, Range (7.8-10.44), Bilirubin, Total 0.4 mg/dL, Range (0.2-1.2), Protein, Total 7.1 g/dL, Range (5.8-8.1), NOTE: Plasma values are generally 0.3 to 0.5 g/dL higher than serum values, due to the presence of fibrinogen. , Albumin 4.0 g/dL, Range (3.4-4.8), Globulin 3.1 g/dL, Range (2.4-3.5), Alb/Glob Ratio 1.3 g/dL, Range (1.2-2.2), Alkaline Phosphatase 47 U/L, Range (40-150), *AST (SGOT) 44 - H U/L, Range (5-34), ALT (SGPT) 25 U/L, Range (0-55). (Sat Aug 13, 2016 00:27 LWAL) Cardiac Profile w/CKMB & TropI Collection DT: MonAug 12, 2016 23:49, Critical Call CKMBM CALLED W/READ BACK , *CKMB 7.1 - *H ng/mL, Range (0-6.6), Critical value! Critical value!, Troponin I 0.010 ng/mL, Range (< 0.028), Reference Range , 0.00 - 0.028 ng/mL Negative 0.029 - 0.29 ng/mL , Indeterminate &a-1R&a+25V*p+0X*f7049Q*c202B*c15G*c2P*p-0X&a-25V&a+1R Name: Lazara Alexander : 1945 F71 MedRec: [id number] AcctNum: [id number] Prepared: [facility] Aug 13, 2016 01:42 by Interface Page 12 of 13 pMD [facility] EMERGENCY RECORD Greater or Equal to 0.3 ng/mL Strongly suggests ME , . ([facility] Aug 13, 2016 00:47 LWAL) [place]: SHIKHA=BONNIE Bills, Carmen OKEEFE=BONNIE Beaver, Nando HUMMEL=MD Enzo, Robert LWAL=BONNIE Andrade, Deepali &a-1R&a+25V*p+0X*w9667K*c202B*c15G*c2P*p-0X&a-25V&a+1R Name: Lazara Alexander : 1945 F71 MedRec: [id number] AcctNum: [id number] Prepared: [facility] Aug 13, 2016 01:42 by Interface Page 13 of 13 pMD [facility] MEDICATION RECONCILIATION You were seen in the Emergency Department on: MonAug 12, 2016 KNOWN ALLERGIES Codeine (Unconfirmed) codeine sulfate Iodides Iodinated Contrast Media (Unconfirmed) Latex morphine Shellfish Allergy (Unconfirmed) HOME MEDICATIONS CONTINUE PRESCRIBED amLODIPine : TABLET : Strength - 5 mg : ORAL Continue as prescribed Patient had been taking: Dose unknown Aspirin Child : TABLET, CHEWABLE : Strength - 81 mg : ORAL Continue as prescribed Patient had been taking: Dose unknown Crestor : TABLET : Strength - 20 mg : ORAL Continue as prescribed Patient had been taking: Dose unknown Dialyvite Vitamin D : CAPSULE : Strength - 5,000 unit : ORAL Continue as prescribed Patient had been taking: Dose unknown Diovan : TABLET : Strength - 320 mg : ORAL Continue as prescribed Patient had been taking: Dose unknown hydrALAZINE : TABLET : Strength - 25 mg : ORAL Continue as prescribed Patient had been taking: Dose unknown methimazole : TABLET : Strength - 10 mg : ORAL Continue as prescribed Patient had been taking: Dose unknown &a-1R&a+25V*p+0X*r3611L*c202B*c15G*c2P*p-0X&a-25V&a+1R Name: Lazara Alexander : 1945 F71 MedRec: [id number] AcctNum: [id number] Prepared: Sat Aug 13, 2016 01:42 by Interface pMD [facility] MEDICATION RECONCILIATION omeprazole : CAPSULE,DELAYED RELEASE (ENTERIC COATED) : Strength - 20 mg : ORAL Continue as prescribed Patient had been taking: Dose unknown oxybutynin chloride : TABLET : Strength - 5 mg : ORAL Continue as prescribed Patient had been taking: Dose unknown triamterene-hydrochlorothiazid : CAPSULE : Strength - 37.5 mg-25 mg : ORAL Continue as prescribed Patient had been taking: Dose unknown Notes from the emergency department Reviewed with family Reviewed with patient PRESCRIPTIONS (1) &a-1R&a+25V*p+0X*a9139Q*c202B*c15G*c2P*p-0X&a-25V&a+1R Name: Lazara Alexander : 1945 F71 MedRec: [id number] AcctNum: [id number] Prepared: Sat Aug 13, 2016 01:42 by Interface pMD DES
== END 2016-08-13 01:28 | disposition home or self-care (01) ==
LOC: MADERS 22:15
DX: R33.9 Retention of urine, unspecified (principal); T40.4X5A Adverse effect of other synthetic narcotics, initial encounter; G89.18 Other acute postprocedural pain
CPT/HCPCS: 36415; 51702; 71010; 80053; 81003; 82553; 83735; 83880; 84484; 85025; 85610; 85730; 87086; 93005; 94760

== ENCOUNTER 2016-09-06 09:38 | Outpatient (CLI) | payer MEDICARE, BC ==
[2016-09-06 15:02] LABS: Bilirubin Negative (Negative); Blood, Urine Negative (Negative); Clarity Clear (Clear); Glucose, Urine (Dipstick) Negative (Negative); Leukocyte Negative (Negative); Nitrite Negative (Negative); Protein, Urine (Dipstick) Negative (Neg-Trace); Urobilinogen 0.2 mg/dL (0.2-1.0)
[2016-09-07 17:22] LABS: Creatinine, Urine 126.08 mg/dL (47-110); Potassium, Urine 49.6 mmol/L
[2016-09-14 10:22] LABS: Renin Activity 39.365 ng/mL/hr (0.167-5.380)
== END 2016-09-06 09:39 | disposition home or self-care (01) ==
LOC: MADLABBHPM 09:38
PROVIDERS: ATTEND Internal Medicine Nephrology
DX: R30.0 Dysuria (principal)
CPT/HCPCS: 36415; 81003; 82088; 82570; 84133; 84156; 84244; 84300

== ENCOUNTER 2016-10-27 07:03 | Outpatient (CLI) | payer MEDICARE, BC ==
[2016-10-27 10:12] LABS: Anion Gap 15 mmol/L (10-20); BUN (Urea Nitrogen) 11 mg/dL (9.8-20.1); Calc. Creatinine Clearance 0 mL/min (70-130); Calcium 9.9 mg/dL (7.8-10.44); Carbon Dioxide 24 mmol/L (23-31); Chloride 105 mmol/L (98-107); Estimated GFR-MDRD 81; Glucose 168 mg/dL (80-115); Potassium 3.6 mmol/L (3.5-5.1); Sodium 140 mmol/L (136-145)
== END 2016-10-27 07:04 | disposition home or self-care (01) ==
LOC: MADLAB 07:03
PROVIDERS: ATTEND Internal Medicine Nephrology
DX: I10 Essential (primary) hypertension (principal)
CPT/HCPCS: 36415; 80048

== ENCOUNTER 2016-12-21 09:55 | Outpatient (CLI) | payer MEDICARE, BC ==
[2016-12-21 10:22] LABS: Anion Gap 13 mmol/L (10-20); BUN (Urea Nitrogen) 7 mg/dL (9.8-20.1); Calc. Creatinine Clearance 0 mL/min (70-130); Calcium 9.7 mg/dL (7.8-10.44); Carbon Dioxide 26 mmol/L (23-31); Chloride 103 mmol/L (98-107); Estimated GFR-MDRD 87; Glucose 118 mg/dL (80-115); Potassium 3.3 mmol/L (3.5-5.1); Sodium 139 mmol/L (136-145)
[2016-12-21 10:26] LABS: #Eosinphils 0.1 thou/uL (0.0-0.7); #Lymphocytes 2.3 thou/uL (1.20-3.40); #Monocytes 0.5 thou/uL (0.11-0.59); %Basophils 0.7 % (0.0-1.0); %Eosinophils 2.6 % (0.0-10.0); %Lymphocytes 46.9 % (21.0-51.0); %Monocytes 9.3 % (0.0-10.0); %Neutrophils 40.5 % (42.0-75.0); Hemoglobin 10.5 g/dL (12.0-16.0); Mean Corpuscular HGB CONC 30.9 g/dL (32.0-36.0); Mean Corpuscular Volume 87.6 fl (81.0-99.0); Mean Platelet Volume 7.7 fL (7.4-10.4); Platelet Count 295 thou/uL (130-400); RBC Distribution Width 13.4 % (11.5-14.5); Red Blood Cell (RBC) Count 3.87 mill/uL (4.20-5.40)
== END 2016-12-21 09:56 | disposition home or self-care (01) ==
LOC: MADLABBHPM 09:55
PROVIDERS: ATTEND Family Medicine
DX: D64.9 Anemia, unspecified (principal); I10 Essential (primary) hypertension
CPT/HCPCS: 36415; 80048; 85025

== ENCOUNTER 2017-08-02 06:45 | Outpatient (CLI) | payer MEDICARE, BC ==
--- NOTE | 2017-08-02 07:45 | ULT ---
RIGHT UPPER QUADRANT ULTRASOUND: Date: 08/02/17 HISTORY: 72-year-old female with right upper quadrant pain for 1 week. FINDINGS: Gallbladder is demonstrated without evidence of gallstones, wall thickening, edema, or pericholecysti c fluid. Common bile duct is 0.2 cm. Visualized liver, pancreas, and right kidney are unremarkable. IMPRESSION: No acute process. No evidence of gallstones. POS: [facility]
[2017-08-02 07:54] LABS: #Eosinphils 0.1 thou/uL (0.0-0.7); #Lymphocytes 2.4 thou/uL (1.20-3.40); #Monocytes 0.5 thou/uL (0.11-0.59); #Neutrophils 1.7 thou/uL (1.40-6.50); %Eosinophils 2.4 % (0.0-10.0); %Lymphocytes 49.7 % (21.0-51.0); %Monocytes 10.7 % (0.0-10.0); %Neutrophils 36.3 % (42.0-75.0); Hemoglobin 11.4 g/dL (12.0-16.0); Mean Corpuscular HGB CONC 32.2 g/dL (32.0-36.0); Mean Corpuscular Hemoglobin 28.7 pg (27.0-31.0); Mean Corpuscular Volume 89.1 fl (81.0-99.0); Mean Platelet Volume 7.4 fL (7.4-10.4); Platelet Count 299 thou/uL (130-400); RBC Distribution Width 11.6 % (11.5-14.5); Red Blood Cell (RBC) Count 3.96 mill/uL (4.20-5.40); White Blood Cell (WBC) Count 4.8 thou/uL (4.8-10.8)
[2017-08-02 08:15] LABS: ALT (SGPT) 14 U/L (8-55); AST (SGOT) 14 U/L (5-34); Alkaline Phosphatase 46 U/L (40-150); Anion Gap 14 mmol/L (10-20); BUN (Urea Nitrogen) 13 mg/dL (9.8-20.1); Bilirubin, Total 0.5 mg/dL (0.2-1.2); Calc. Creatinine Clearance 0 mL/min (70-130); Calcium 9.7 mg/dL (7.8-10.44); Carbon Dioxide 28 mmol/L (23-31); Chloride 102 mmol/L (98-107); Estimated GFR-MDRD 81; Globulin 3.8 g/dL (2.4-3.5); Glucose 107 mg/dL (80-115); Potassium 3.2 mmol/L (3.5-5.1); Protein, Total 7.8 g/dL (6.0-8.3); Sodium 141 mmol/L (136-145)
[2017-08-02 09:15] LABS: Bilirubin Negative (Negative); Blood, Urine Negative (Negative); Clarity Clear (Clear); Glucose, Urine (Dipstick) Negative (Negative); Leukocyte Small (Negative); Nitrite Negative (Negative); Protein, Urine (Dipstick) Negative (Neg-Trace); Specific Gravity, Urine 1.015 (1.005-1.030); Urobilinogen 0.2 mg/dL (0.2-1.0)
[2017-08-02 09:22] LABS: Bacteria/HPF Rare-Few HPF (None Seen)
== END 2017-08-02 06:46 | disposition home or self-care (01) ==
LOC: MADULT 06:45
PROVIDERS: ATTEND Family Medicine
DX: R10.11 Right upper quadrant pain (principal)
CPT/HCPCS: 36415; 76705; 80053; 81001; 85025

== ENCOUNTER 2017-09-15 12:34 | Emergency (ER) | payer MEDICARE, BC ==
--- NOTE | 2017-09-15 14:53 | RAD ---
CHEST 2 VIEWS: Date: 09/15/17 HISTORY: Left pleuritic chest pain. COMPARISON: 01/10/17. FINDINGS: Normal cardiac silhouette. Pulmonary vessels and hilum are normal. Costophrenic angles are clear. No masses or consolidation. No pneumothorax or osseous abnormalities. IMPRESSION: No acute cardiopulmonary process. POS: [facility]
== END 2017-09-15 15:10 | disposition home or self-care (01) ==
LOC: MADERS 12:34
DX: M94.0 Chondrocostal junction syndrome [Tietze] (principal); I10 Essential (primary) hypertension; Z79.82 Long term (current) use of aspirin; Z79.899 Other long term (current) drug therapy
CPT/HCPCS: 71046

== ENCOUNTER 2019-09-30 11:29 | Outpatient (CLI) | payer MEDICARE, BC ==
[2019-09-30 11:59] LABS: #Basophils 0.1 thou/uL (0.0-0.2); #Eosinphils 0.1 thou/uL (0.0-0.7); #Lymphocytes 2.6 thou/uL (1.20-3.40); #Monocytes 0.5 thou/uL (0.11-0.59); #Neutrophils 3.1 thou/uL (1.40-6.50); %Eosinophils 2.2 % (0.0-10.0); %Lymphocytes 40.6 % (21.0-51.0); %Monocytes 7.9 % (0.0-10.0); %Neutrophils 48.3 % (42.0-75.0); Hemoglobin 12.3 g/dL (12.0-16.0); Mean Corpuscular HGB CONC 29.5 g/dL (32.0-36.0); Mean Corpuscular Hemoglobin 27.1 pg (27.0-31.0); Mean Corpuscular Volume 91.9 fL (78.0-98.0); Mean Platelet Volume 7.7 fL (7.4-10.4); Platelet Count 328 thou/uL (130-400); RBC Distribution Width 11.8 % (11.5-14.5); Red Blood Cell (RBC) Count 4.54 mill/uL (4.20-5.40); White Blood Cell (WBC) Count 6.3 thou/uL (4.8-10.8)
[2019-09-30 12:39] LABS: Anisocytosis SLIGHT = 6-15 cells (100X) (0-5/hpf); Platelet Morphology Comment Appears Adequate
== END 2019-09-30 11:30 | disposition home or self-care (01) ==
LOC: MADLABBHPM 11:29
PROVIDERS: ATTEND Family Medicine
DX: D64.9 Anemia, unspecified (principal)
CPT/HCPCS: 36415; 85025

== ENCOUNTER 2020-07-05 13:11 | Emergency (ER) | payer MEDICARE, BC ==
--- NOTE | 2020-07-05 14:12 | RAD ---
SINGLE VIEW OF THE CHEST: Comparison: 01-10-17 History: Heart palpitations/chest palpitations. FINDINGS: Single view of the chest shows normal sized heart, mediastinal silhouette with atherosclerotic calcif ications in the aorta. There is no evidence of consolidation, mass, or pleural effusions. Degenerativ e changes are seen in the spine. IMPRESSION: No evidence of acute cardiopulmonary disease. POS: [facility]
[2020-07-05 14:33] LABS: #Basophils 0.1 thou/uL (0.0-0.2); #Lymphocytes 2.4 thou/uL (1.20-3.40); #Monocytes 0.8 thou/uL (0.11-0.59); #Neutrophils 4.2 thou/uL (1.40-6.50); %Basophils 0.8 % (0.0-1.0); %Eosinophils 0.5 % (0.0-10.0); %Lymphocytes 32.1 % (21.0-51.0); %Monocytes 10.4 % (0.0-10.0); %Neutrophils 56.2 % (42.0-75.0); Mean Corpuscular HGB CONC 30.2 g/dL (32.0-36.0); Mean Corpuscular Hemoglobin 27.2 pg (27.0-31.0); Mean Corpuscular Volume 90.2 fL (78.0-98.0); Mean Platelet Volume 6.3 fL (7.4-10.4); Platelet Count 334 thou/uL (130-400); RBC Distribution Width 11.2 % (11.5-14.5); White Blood Cell (WBC) Count 7.4 thou/uL (4.8-10.8)
[2020-07-05 14:48] LABS: ALT (SGPT) 17 U/L (8-55); AST (SGOT) 18 U/L (5-34); Albumin 4.5 g/dL (3.4-4.8); Alkaline Phosphatase 46 U/L (40-110); Anion Gap 16 mmol/L (10-20); BUN (Urea Nitrogen) 13 mg/dL (9.8-20.1); Bilirubin, Total 0.5 mg/dL (0.2-1.2); Calc. Creatinine Clearance 0 mL/min (70-130); Calcium 10.3 mg/dL (7.8-10.44); Carbon Dioxide 23 mmol/L (23-31); Chloride 106 mmol/L (98-107); Glucose 108 mg/dL (83-110); Potassium 3.8 mmol/L (3.5-5.1); Protein, Total 8.5 g/dL (6.0-8.3); Sodium 141 mmol/L (136-145)
== END 2020-07-05 15:30 | disposition home or self-care (01) ==
LOC: MADERS 13:11
DX: R00.2 Palpitations (principal); I10 Essential (primary) hypertension; Z79.82 Long term (current) use of aspirin; Z79.899 Other long term (current) drug therapy
CPT/HCPCS: 36415; 71045; 80053; 83880; 84484; 85025

== ENCOUNTER 2022-01-01 15:22 | Emergency (ER) | payer MEDICARE, BC ==
[2022-01-01] MEDS ORDERED: Fluorescein Opthalmic Strip ONE (16:55)
[2022-01-01] MEDS ORDERED: Tetracaine 0.5% PF 4 ML BOT ONE (16:55)
== END 2022-01-01 17:27 | disposition home or self-care (01) ==
LOC: MADERS 15:22
DX: H00.11 Chalazion right upper eyelid (principal); I10 Essential (primary) hypertension; Z79.899 Other long term (current) drug therapy
CPT/HCPCS: 99283

== ENCOUNTER 2022-11-07 10:28 | Emergency (ER) | payer BC | END 2022-11-07 12:11 | disposition home or self-care (01) | LOC: MADERS 10:28 | DX: M76.62 Achilles tendinitis, left leg (principal); K21.9 Gastro-esophageal reflux disease without esophagitis; E78.5 Hyperlipidemia, unspecified; I10 Essential (primary) hypertension; Z79.899 Other long term (current) drug therapy; Z79.82 Long term (current) use of aspirin ==

== ENCOUNTER 2024-05-28 11:30 | Emergency (ER) | payer MEDICARE ==
[2024-05-28] MEDS ORDERED: Dexamethasone 10 MG/ML VIAL ONE (12:07)
[2024-05-28] MEDS ORDERED: Lidocaine 4% Patch ONE (12:07)
[2024-05-28 12:21] LABS: Bilirubin Negative (Negative); Blood, Urine Negative (Negative); Clarity Clear (Clear); Glucose, Urine (Dipstick) Negative (Negative); Ketone, Urine Negative (Negative); Leukocyte Trace (Negative); Nitrite Negative (Negative); Protein, Urine (Dipstick) Negative (Neg-Trace)
[2024-05-28 12:40] LABS: Bacteria/HPF Rare-Few HPF (None Seen); CAUTI Indications for Culture Pelvic or flank pain; RBC/HPF 0-3 HPF (0-3); Squamous Epithelial 0-3 HPF (0-3); WBC/HPF 0-3 HPF (0-3)
[2024-05-28 12:41] LABS: Urine Culture Reflex No No
== END 2024-05-28 13:08 | disposition home or self-care (01) ==
LOC: MADERS 11:30
DX: M54.41 Lumbago with sciatica, right side (principal); E03.9 Hypothyroidism, unspecified; K21.9 Gastro-esophageal reflux disease without esophagitis; E78.5 Hyperlipidemia, unspecified; I10 Essential (primary) hypertension; Z79.899 Other long term (current) drug therapy; Z79.82 Long term (current) use of aspirin
CPT/HCPCS: 81001; J1100; 96372; 99283

== ENCOUNTER 2024-11-07 07:49 | Outpatient (CLI) | payer MEDICARE, BC | END 2024-11-07 07:50 | disposition home or self-care (01) | LOC: MADCT 07:49 | PROVIDERS: ATTEND Family Medicine | DX: R10.9 Unspecified abdominal pain (principal); K57.32 Diverticulitis of large intestine without perforation or abscess without bleeding; N28.9 Disorder of kidney and ureter, unspecified | CPT/HCPCS: 74176 ==

== ENCOUNTER 2025-05-26 10:20 | Emergency (ER) | payer MEDICARE ==
[2025-05-26] MEDS ORDERED: diphenhydrAMINE 25 MG CAP ONE (10:42)
== END 2025-05-26 10:45 | disposition home or self-care (01) ==
LOC: MADERS 10:20
DX: L03.211 Cellulitis of face (principal); S00.86XA Insect bite (nonvenomous) of other part of head, initial encounter; S90.562A Insect bite (nonvenomous), left ankle, initial encounter; S50.361A Insect bite (nonvenomous) of right elbow, initial encounter; I10 Essential (primary) hypertension; W57.XXXA Bitten or stung by nonvenomous insect and other nonvenomous arthropods, initial encounter
CPT/HCPCS: 99283

== ENCOUNTER 2025-06-23 10:32 | Emergency (ER) | payer MEDICARE ==
[2025-06-23] MEDS ORDERED: predniSONE 20 MG TAB ONE (11:13)
== END 2025-06-23 11:24 | disposition home or self-care (01) ==
LOC: MADERS 10:32
DX: R21 Rash and other nonspecific skin eruption (principal); K21.9 Gastro-esophageal reflux disease without esophagitis; I10 Essential (primary) hypertension; Z79.82 Long term (current) use of aspirin; Z79.899 Other long term (current) drug therapy
CPT/HCPCS: J7512